=== PATIENT | male | born 1990 | race Caucasian/White ===

== ENCOUNTER 2022-11-24 14:47 | Emergency (ER) | payer BC, SELFPAY ==
--- NOTE | ~2022-11-24 | XR_ITS ---
EXAM: XR foot LT min 3V DATE: 11/24/2022 15:41 HISTORY: POSSIBLE FOREIGN BODY, 1ST DIGIT/METATARSAL AREA . COMPARISON: None available. FINDINGS: Normal mineralization. No fracture or dislocation. No lytic or blastic lesion. Joint space s are maintained. Achilles enthesopathy. No erosion or periosteal change. Linear radiopaque foreign b renae in the plantar soft tissues at the level of the mid and distal first metatarsal traversing obliqu neo from the level of the first metatarsal, distally and laterally, terminating at the level of the f irst interspace. IMPRESSION: Plantar soft tissue radiopaque foreign body, apparent wire or needle fragment, at the lev el of the first interspace and first metatarsal. Reviewed, dictated and finalized at location K. IMPRESSION: Plantar soft tissue radiopaque foreign body, apparent wire or needl e fragment, at the level of the first interspace and first metatarsal.
[2022-11-24 15:10] VITALS: BP 154/83; PULSE 66; RESP 16; TEMP 36.9; O2SAT 100
[2022-11-24 15:13] VITALS: BP 154/83; PULSE 66; RESP 16; TEMP 36.9; O2SAT 100
--- NOTE | 2022-11-24 15:30 | ED.LOWEXIN ---
HPI - Extremity Injury (Lower) General Chief Complaint: Extremity Injury, Lower Stated Complaint: Left Foot Pain Time Seen by Provider: 11/24/22 15:30 Source: patient Mode of arrival: ambulatory Limitations: no limitations History of Present Illness HPI Narrative: 32 yo M presents with c/o FB to L foot. States he was staying in hotel approx. 3 wks ago and felt something stab his foot. Looked at foot and did not see anything or any bleeding. over the past week has felt something in foot when running. States he can feel something. Has made several small cuts to the bottom of his foot trying to remove FB. pt states he thinks he is a sewing needle. All systems reviewed and negative except as noted above. Related Data Allergies Allergy/AdvReac Type Severity Reaction Status Date / Time No Known Allergies Allergy Verified 11/24/22 15:12 Review of Systems Review of Systems: CONSTITUTIONAL: Denies fever, chills, or sweats. EYES: Denies visual changes, redness, or discharge. ENT: Denies rhinorrhea, congestion, sore throat, or otalgia. CARDIOVASCULAR: Denies chest pain, palpitations, or edema. RESPIRATORY: Denies cough or dyspnea. GASTROINTESTINAL: Denies abdominal pain, nausea, vomiting, or diarrhea. GENITOURINARY: Denies dysuria or hematuria. SKIN: Denies rash or itching. Reports pain to dorsal aspect L foot concerning for FB. MUSCULOSKELETAL: Denies back pain, joint pain, or myalgia. NEUROLOGIC: Denies headache, numbness, or weakness. PSYCHIATRIC: Denies anxiety or depression. All other systems reviewed are negative, except as documented in HPI. PMFSH Comments At time of signature, agree with nursing past medical, surgical, social and family history. There is no relevant family history pertinent to the presenting complaint. Exam Narrative: GENERAL: This is a well-nourished, well-developed patient, in no apparent distress. HEAD: normocephalic, atraumatic. EYES: PERRL. Sclera clear/white. Vision is grossly intact. EARS: External ears normal NOSE: External nose normal NECK: Neck supple, non-tender without lymphadenopathy, masses or thyromegaly. CARDIOVASCULAR: Regular rate and rhythm without murmurs, gallops, or rubs. RESPIRATORY: Clear to auscultation. Breath sounds equal bilaterally. No wheezes, rales, or rhonchi. SKIN: warm, Dry, intact with no suspicious lesions or rash, good texture and turgor. harden area to dorsal aspect L foot, feels like callus. several small superficial wounds where pt tried to remove FB. no signs of infection. no FB noted on palpation. NEURO: awake, alert, and oriented to person, place and time. There were no obvious focal neurologic abnormalities. EXTREMITIES: No joint tenderness, effusion, or edema noted. Course Course Level of Care: Express Care Visit Vital Signs Vital signs: Vital Signs Temperature 36.9 C 11/24/22 15:10 Pulse Rate 66 11/24/22 15:10 Respiratory Rate 16 11/24/22 15:10 Blood Pressure 154/83 H 11/24/22 15:10 Pulse Oximetry 100 11/24/22 15:10 Oxygen Delivery Room Air 11/24/22 15:10 Temperature 36.9 C 11/24/22 15:13 Pulse Rate 66 11/24/22 15:13 Respiratory Rate 16 11/24/22 15:13 Blood Pressure 154/83 H 11/24/22 15:13 Pulse Oximetry 100 11/24/22 15:13 Oxygen Delivery Room Air 11/24/22 15:13 Reviewed MDM - Extremity Injury (Lower) MDM Narrative Medical decision making narrative: discussed x-ray results with pt. referred to podiatry for FB removal. pt would like abx as he is concerned he may get infection from him trying to remove FB himself. There are no signs of infection at this time. pt thinks FB is a sewing needle although he was in a hotel room. Explained to pt that if this is possible a needle from some type of medication he may need testing for hepatitis and HIV and he voiced understanding. Patient is aware of diagnosis, understands and agrees to treatment plan. Anticipatory guidance given. Patient agrees
== END 2022-11-24 15:58 | disposition home or self-care (01) ==
PROVIDERS: Emergency Provider Nurse Practitioner Family
DX: S90.852A Superficial foreign body, left foot, initial encounter (principal); W22.8XXA Striking against or struck by other objects, initial encounter
CPT/HCPCS: 73630; 99213; G0463

== ENCOUNTER 2023-04-01 16:12 | Emergency (ER) | payer BC, SELFPAY ==
[2023-04-01 16:16] VITALS: BP 153/88; PULSE 63; RESP 16; TEMP 36.4; O2SAT 100
--- NOTE | 2023-04-01 16:39 | ECG_ITS ---
Measurements Intervals [place] Rate: 71 P: -17 CT: 139 QRS: 8 QRSD: 105 T: 58 QT: 406 QTc: 444 Interpretive Statements SINUS RHYTHM MINIMAL Q WAVES- ANTEROLAT/HIGH LAT LEADS BORDERLINE ECG NO PREVIOUS ECG AVAILABLE FOR COMPARISON Electronically Signed On 04-01-2023 19:14:18 CERTIFIED CODER by Chapito Smith D.O.
--- NOTE | 2023-04-01 16:42 | ED.GENADULT ---
HPI - General Adult General Chief complaint: Upper Respiratory Infection Stated complaint: Shortness of Breath,Lightheaded Time Seen by Provider: 04/01/23 16:30 Source: patient and RN notes reviewed Mode of arrival: ambulatory Limitations: no limitations History of Present Illness HPI narrative: Patient presents today complaining of occasional episodes of, shortness of breath, lethargy and lightheadedness. First episode was in October 2022, then he had no episodes for several months, before beginning again approximately 6 weeks ago. States he will have 1 episode, then several days in between, then another episode randomly. Reports that episodes are typically brought on when he tries to lift weights. States he can work out by running, and this does not usually bring on an episode, but when he goes to exert himself by lift weights or other exercises, he sometimes will initiate an episode, but not always. These episodes do not typically last long. During these episodes he denies chest pain, numbness or tingling in the extremities, dizziness, vision changes. Patient states he has mentioned these episodes to his PCP in the past, but has not been worked up. States he typically has a low resting heart rate around 60. He has been feeling anxious recently, related to the recent of his brother 3 weeks ago due to ruptured aortic aneurysm. He has p.r.n. propranolol the has taken 3 times, mostly surrounding his brother's , for his anxiety. Related Data Home Medications Medication Instructions Recorded Confirmed propranolol 10 mg tablet 10 mg PO PRN PRN Anxiety 04/01/23 04/01/23 Allergies Allergy/AdvReac Type Severity Reaction Status Date / Time No Known Allergies Allergy Verified 04/01/23 16:13 Review of Systems Review of Systems: CONSTITUTIONAL: Denies body aches, fever, chills, or sweats.+ lethargy EYES: Denies visual changes, redness, or discharge. ENT: Denies rhinorrhea, congestion, sore throat, or otalgia. CARDIOVASCULAR: Denies chest pain, palpitations, or edema. RESPIRATORY: Denies cough.+ shortness of breath with exertion GASTROINTESTINAL: Denies abdominal pain, nausea, vomiting, or diarrhea. GENITOURINARY: Denies dysuria or hematuria. SKIN: Denies rash, itching, or wounds. MUSCULOSKELETAL: Denies back pain, joint pain, or myalgia. NEUROLOGIC: Denies headache, numbness, tingling, or weakness.+ lightheadedness PSYCH: Denies depression or anxiety. [facility] Past Medical History Medical History Anxiety Family History Family History Sibling Ruptured aortic aneurysm Comments At time of signature, I have reviewed and agree with nursing past medical, surgical, social and family history unless otherwise noted. Please see nursing chart for further information. There is no relevant family history pertinent to the presenting complaint Exam Narrative: GENERAL: Well-appearing, well-nourished, and in no acute distress. HEAD: Normocephalic, atraumatic. EYES: EOMI. No redness or drainage. Conjunctivae normal. ENT: Mucous membranes pink and moist. NECK: Normal AROM. Supple. No lymphadenopathy. CHEST: No respiratory distress. Clear to auscultation. HEART: Regular rate and rhythm. No murmur appreciated. Normal peripheral pulses. ABDOMEN: Soft, nontender, nondistended, normal active bowel sounds. EXTREMITIES: Normal range of motion. No edema. SKIN: Warm, dry, no rash. Capillary refill normal. Normal skin turgor. NEURO: No focal deficits. Alert and oriented x3. Gait steady. PSYCH: Normal affect. No signs of depression or anxiety. Course Course Level of Care: Express Care Visit Vital Signs Vital signs: Vital Signs Temperature 97.5 F L 04/01/23 16:16 Pulse Rate 63 04/01/23 16:16 Respiratory Rate 16 04/01/23 16:16 Blood Pressure 153/88 H 04/01/23 16:16 Pul
== END 2023-04-01 16:55 | disposition home or self-care (01) ==
PROVIDERS: Emergency Provider Nurse Practitioner; PCP Nurse Practitioner Family
DX: R42 Dizziness and giddiness (principal); F41.9 Anxiety disorder, unspecified; Z79.899 Other long term (current) drug therapy
CPT/HCPCS: 93005; 99213; G0463

== ENCOUNTER 2025-02-16 18:20 | Emergency (ER) | payer BC, SELFPAY ==
--- NOTE | 2025-02-16 18:23 | ED.URI ---
HPI - URI/Sore Throat General Chief Complaint: Upper Respiratory Infection Stated Complaint: cough Time Seen by Provider: 02/16/25 18:26 Source: patient, RN notes reviewed and old records reviewed Mode of arrival: ambulatory Limitations: no limitations History of Present Illness HPI Narrative: 34-year-old male presents to the [facility] with complaints of a cough and weight loss over the last month. Denies fevers, chest pain, significant shortness of breath or abdominal pain. Was seen by his food storeroom clerk last week and was told everything looked good. Onset (ago): month(s) (1) Related Data Home Medications ?Medication ?Instructions ?Recorded ?Confirmed ?Last Taken ?Type propranolol 10 mg tablet 10 mg PO PRN PRN Anxiety 04/01/23 02/16/25 Unknown History Allergies Allergy/AdvReac Type Severity Reaction Status Date / Time No Known Allergies Allergy Verified 02/16/25 18:21 Review of Systems Review of Systems: All systems reviewed & are unremarkable except as noted in HPI and below Constitutional: Constitutional: Reports as per HPI and Reports weight loss ENT: Reports system reviewed and no additional complaints, except as documented Cardiovascular: Cardiovascular: Reports no additional cardiovascular complaints, Denies chest pain and Denies dyspnea Respiratory: Respiratory: Reports as per HPI, Denies chest congestion, Reports cough and Denies dyspnea Musculoskeletal: Musculoskeletal: Reports no additional musculoskeletal complaints Integumentary/Breasts: Skin/Breast: Reports system reviewed and no additional complaints, except as docu PMFSH Past Medical History Medical History Anxiety Family History Family History Sibling Ruptured aortic aneurysm Comments At the time of my signature, I reviewed and agree with the nursing past medical, surgical, social, and family history. There is no relevant family history pertinent to the patient complaint. Exam Const: General: cooperative, healthy appearing, comfortable, no acute distress, well developed, alert and well nourished Nutritional Appearance: well nourished Orientation/consciousness: patient oriented x3 Limitations: no limitations HENMT: Head: normal to inspection Ears: hearing grossly normal bilaterally, external ears normal, TM's normal bilaterally, EAC's normal, mastoids normal and no periauricular adenopathy Throat: posterior oropharynx normal, uvula midline and uvular edema Eyes: General: appearance normal, both eyes and all related structures Alignment and Position: alignment normal Neck: Neck: normal visual inspection, full ROM, no lymphadenopathy and no meningeal signs Chest: Chest palpation & inspection: normal inspection of the chest Resp: Effort & Inspection: normal respiratory effort and able to speak in complete sentences Auscultation: clear to auscultation bilaterally, no crackles, no rales, no rhonchi and no wheezes Cardio: Rate: regular rate Skin: General skin exam: normal color and no rashes or lesions noted Neuro: General: patient oriented x3, gait normal, moves all extremities and no meningeal signs Cognition (Neuro): normal cognition Speech: normal speech Gait exam (Neuro): Normal gait present Extrem: General: normal to inspection, full ROM, capillary refill normal and normal gait Psych: Appearance: grossly normal and well kempt Mental Status: mental status grossly normal Speech and movement: Normal speech and movement present and Clear speech present Affect: normal affect Attitude: cooperative Course Course Level of Care: Express Care Visit Vital Signs Vital signs: Vital Signs Temperature 97.7 F 02/16/25 18:26 Pulse Rate 55 L 02/16/25 18:26 Respiratory Rate 18 02/16/25 18:26 Blood Pressure 148/91 H 02/16/25 18:26 Pulse Oximetry 100 02/16/25 18:26 Oxygen Delivery Room Air 02/16/25 18:26 Temperature 97.7 F 02/16/25 18:26 Pulse Rate 55 L 02/16/25 18:26 Respiratory Rate 18 02/16/25 18:26 Blood Pressure 148/91 H 02/16/25 18:26 Pulse Oximetry 100 02/16/25 18:26 Oxygen Delivery Room Air 02/16/25 18:26 Reviewed MDM - URI/Sore Throat MDM Narrative Medical decision making narrative: Patient sitting in exam room. Patient is nontoxic, vitals are stable. Patient presents with 1 month history of a cough and weight loss. No acute findings noted on exam. Discussed with patient that we cannot do a workup for weight loss that he should follow-up with primary care provider Patient reports labs recently, saw food storeroom clerk last week. Patient most likely with postnasal drainage. No cough noted during exam. Patient appropriate for outpatient treatment with close follow-up Discharge instructions reviewed with patient, as well as provided in writing per nursing staff. The instructions also include specific and strict return/GO TO THE ER as well as f/u information. All questions have been answered, and the patient deny any further questions with discharge and discharge plan. Some parts of this dictation were generated by voice recognition software and may contain typographical and/or grammatical inaccuracies. Differential Diagnosis Differential diagnosis: Likely upper respiratory infection, otitis media, sinusitis, viral infection, bronchitis, influenza and pharyngitis Critical Care Time Critical Care Time Critical Care Time: No Discharge Plan Discharge Clinical Impression: Cough Patient Disposition: Home Condition: Stable Instructions: Antibiotic Form, Acute Cough (ED), Postnasal Drip (DC) Additional Instructions: Please follow-up with your primary care provider within the next week for your concerns on weight loss. It is very important to treat your symptoms. Drink plenty of water, Gatorade, Pedialyte, ice pops or Jell-O. -Alternate Tylenol and Motrin per package directions for fever or pain. You can alternate every 4 hours -Antihistamine medication such as Zyrtec/Claritin during the day can help improve symptoms. -doing daily nasal irrigations can help relieve pressure your sinuses. Things like a Neti pot -Use Flonase twice a day for 5 days then daily to help reduce the inflammation and dry up your sinuses. -You can also use Mucinex. Be sure to drink plenty of water with this medication at least 8 ounces with every dose and it is important to drink 8 to 10 glasses of water per day. Water is a natural decongestant -Eat and drink things that are easy to swallow, like tea or soup, or popsicles. -Oral rinses such as: Salt water gargles and/or may use topical anesthetic (eg. Chloraseptic spray) or lozenges to relieve dryness or throat pain). -Frequent hand washing or hand account information clerk is one of the best ways to prevent spread of infection. -Using a vaporizer or humidifier at night will also help thin secretions and help with coughing up phlegm. -Follow up with primary care provider in 7-10 days if condition is not improving - For new or worsening symptoms go directly to the nearest ER Patient Language: Martiniquais Prescriptions: No Action propranolol 10 mg tablet 10 mg PO PRN PRN (Reason: Anxiety) Follow-up/Referrals: Hans,Susan White, NEURODIAGNOSTIC TECHNICIAN [Primary Care Provider, Unknown] - 1 Week Stand Alone Forms: Work/School Release IP Time of Disposition: 18:35
--- OUTSIDE RECORDS SUMMARY | 2025-02-16 18:24 | XMS_ITS | Data Portability ---
Author Organization [place] - [facility], Main Office Address [address] [place] [address] Care Team Providers Care Charge Preparation Technician Name Role Phone DIAZ FREDERIC Primary Care Provider Assessment Encounter Date Assessment Date Assessment LastModified by Organization Details LastModified Time 12/16/2024 12/16/2024 Answered all questions for pt. Pt wants to hold off on sleep study at this time. Cont f/u with Oral surgeon as per schedule. F/u with PCP in 2-3 months as directed. Not available 12/16/2024 10:17:42 Plan of Treatment Reminders Order Date Submit Date Provider Last Modified By Organization Details Last Modified Time Details Appointments None recorded. Lab magnesium, serum or plasma 2024 025 [facility], [address] [place], [address], 14:49:08 testostero ne, free + total, serum [address] [facility], [address] [place], [address], 08:45:04 vitamin D, 25-hydroxy , total, serum [address] [facility], [address] [place], [address], 08:45:04 vitamin B12 + folate, serum or blood [address] [facility], [address] [place], [address], 08:45:04 CBC w/ auto diff [address] [facility], [address] [place], [address], 08:45:05 TSH, serum or plasma [address] [facility], [address] [place], [address], 08:45:05 T4, free, serum [address] [facility], [address] [place], [address], 08:45:05 iron + TIBC + ferritin, serum [address] [facility], [address] [place], [address], 08:45:05 testostero ne, free + total, serum 2024 [facility], [address] [place], [address], 16:13:[address] referral - Please call patient to schedule an appointmen t with any in network provider. Thank you. 2024 KELVIN Tripathi MD, [facility], [facility] [address], [place], [address], 14:25:20 Procedures None recorded. Surgeries None recorded. Imaging None recorded. Medication Orders testostero ne cypionate 200 mg/mL intramuscu lar oil 2024 [id number], [address], [place], [id number], 5 09:36:46 fluticason e propionate 50 mcg/actuat ion nasal spray,susp ension [address] [facility], [address] [facility], [place], [place], [id number], 5 11:10:37 cetirizine 10 mg tablet [address] [facility]76927, [address] [facility], [place], [place], [id number], 5 09:28:28 Zithromax Z-Otto 250 mg tablet [address] [facility]56356, [address], [place], [id number], 5 09:28:20 prednisone 10 mg tablet [address] [facility]25100, [address], [place], [id number], 5 09:28:33 Patient TargetsNo targets recorded. Patient InstructionsNo instructions recorded. 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 Thank you. Referring Physician: Susan Maxwell, Family Medicine, Encounter Date: 01/29/2025 Results Created Date Observation Date Name Description Value Unit Range Abnormal Flag Note LastModifiedBy Organization Detail LastModifiedTime Result Notes None recorded. Problems Name Problem SNOMED Code Status Onset Date Resolution Date Notes Provider Name and Address Organization Details Recorded Time Pain in left foot 872232344370 107 Active 2022 Shelby Herrera NP [address] [facility], [facility] [address], [place], [address] , [facility] 3 08:09:59 Accidenta l needle stick injury 461770708243 63654 Completed 202212/25/2023 KRISTAL Lovelace [address], [address], [place], [address], [employer] [facility] 4 09:25:49 Anxiety 81904317 Completed 202212/25/2023 KRISTAL Lovelace [address], [address], [place], [address], [employer] 4 09:25:57 Headache 34778812 Active 2022 Frederic Diaz MD [address], [address], [place], [address], [employer] [facility] 3 12:03:39 Anxiety disorder 628354269 Active 2022 Frederic Diaz MD [address], [address], [place], [address], [employer] 3 12:13:46 Thrombocy topenic disorder 443341710 Active 2022 Frederic Diaz MD [address], [address], [place], [address], [employer] [facility] 3 12:29:26 Family history of Cardiovas cular disease 954124359 Active 2022 Frederic Diaz MD [address], [address], [place], [address], [employer] [facility] 3 12:30:11 of relative Active 2022 Frederic Diaz MD [address], [address], [place], [address], [employer] [facility] 3 12:30:16 Fatigue 34250185 Active 2023 KRISTAL Lovelace [address], [address], [place], [address], [employer] 5 11:22:57 Increased frequency of urination 726811348 Active 2024 KRISTAL Lovelace [address], [place], [address], [employer] [facility] [employer] [facility] 5 10:43:54 Platelet count outside reference range 810294778 Active 2024 KRISTAL Lovelace [address], [address], [place], [address], [employer] [facility] [employer] [facility] 5 10:45:06 Testoster one level below reference range 133794059 Active 2024 KRISTAL Lovelace [address], [place], [address], [employer] [facility] [employer] [facility] 5 10:46:00 Nasal congestio n 20594807 Active 2024 Frederic Diaz MD [address], [address], [place], [address], [employer] [facility] [employer] [facility] 5 10:58:28 Facial sinus finding 210295854 Active 2024 Frederic Diaz MD [address], [place], [address], [employer] [facility] [employer] [facility] 5 10:58:38 Productiv e cough 35857148 Active 2024 Frederic Diaz MD [address], [address], [place], [address], [employer] [facility] [employer] [facility] 5 11:17:40 Purulent bronchiti s 15548749 Active 2024 Frederic Diaz MD [address], [place], [address], [employer] [facility] [employer] [facility] 5 11:18:42 Seasonal allergy 252323258 Active 2024 Frederic Diaz MD [address], [address], [place], [address], [employer] [facility] [employer] [facility] 5 11:20:49 Malaise and fatigue 665583540 Active 2024 Frederic Diaz MD [address], [address], [place], [address], [employer] 09:55:36 Disorder of respirato ry system suspected 285860903 Active 2024 Frederic Diaz MD [address], [place], [address], [employer] 09:55:47 Lethargy 801653471 Active 2024 Frederic Diaz MD [address], [address], [place], [address], [employer] 10:17:06 Male hypogonad ism 35515958 Active 2024 KRISTAL Lovelace [address], [address], [place], [address], [employer] 11:20:09 Sinus bradycard ia 55823715 Active 2024 KRISTAL Lovelace [address], [address], [place], [address], [employer] 11:22:24 Calcified lymph nodes 960176518 Active 2024 KRISTAL Lovelace [address], [address], [place], [address], [employer] 08:52:49 Hypermagn esemia 64451162 Active 2024 KRISTAL Lovelace [address], [place], [address], [employer] 10:22:58 Problem Notes None recorded. Medical Equipment None Reported. Allergies No known drug allergies Medications Name Sig Start Date Stop Date Status Note LastModified by Organization Details LastModified Time prednisone 10 mg tablet Take 1 tablet every day by oral route as directed for 7 days. 11/05 completed Not Available Not Available Not Available cetirizine 10 mg tablet Take 1 tablet every day by oral route as directed for 30 days. 11/05 completed Not Available Not Available Not Available azithromyci n 250 mg tablet TAKE 2 TABLETS (500 MG) BY ORAL ROUTE ONCE DAILY FOR 1 DAY THEN 1 TABLET (250 MG) BY ORAL ROUTE ONCE DAILY FOR 4 DAYS 11/05 completed Not Available Not Available Not Available amoxicillin 500 mg tablet TAKE 1 TABLET BY MOUTH THREE TIMES DAILY 01/29 completed Not Available Not Available Not Available propranolol 10 mg tablet TAKE 1 TO 2 TABLETS BY MOUTH TWICE DAILY NEEDED FOR ANXIETY 12/24 completed Not Available Not Available Not Available benzonatate 100 mg capsule active Not Available Not Available Not Available cephalexin 500 mg capsule TAKE 1 CAPSULE BY MOUTH TWICE DAILY. 04/10 completed Not Available Not Available Not Available buspirone 10 mg tablet TAKE 1 TABLET BY MOUTH EVERY 12 HOURS NEEDED 12/24 completed Not Available Not Available Not Available testosteron e cypionate 200 mg/mL intramuscul ar oil INJECT 0.25 ML IN THE MUSCLE EVERY 4 WEEKS DIRECTED active Not Available Not Available No t Available methylpredn isolone 4 mg tablets in a dose pack FOLLOW PACKAGE DIRECTION S 12/16 completed Not Available Not Available Not Available fluticasone propionate 50 mcg/actuati on nasal spray,suspe nsion SHAKE LIQUID AND USE 2 SPRAYS IN EACH NOSTRIL EVERY DAY DIRECTED 01/29 completed Not Available Not Available Not Available Eclipse Syringe 3 mL 25 gauge x 1 USE DIRECTED active Not Available Not Available No t Available Vitals Date Recorded Heart rate Provider Name an d Address Organization Details Last Updated DateTime 10/15/2024 63 /min Kiko Ford [address] [facility], [facility] [address], [place], [address], [place] - [facility] [employer] [facility] 10/15/2024 11:42:52 Date Recorded Body height Body mass index (BMI) Body weight Body temperature Oxygen saturation Oxygen saturation in Arterial blood by Pulse oximetry Systolic And Diastolic Provider Name and Address Organization Details Last Updated DateTime 193.04 cm 24.5 kg/m2 13530.7 7 g 97.3 [degF] 97 % 97 % 140/80 mm[Hg] Soha Hernandes RN [facility] [employer] [facility] 5 11:14:28 Date Recorded Body height Body mass index (BMI) Body weight Body temperature Heart rate Respiratory rate Oxygen saturation Oxygen saturation in Arterial blood by Pulse oximetry Pain severity - 0-10 verbal numeric rating [Score] - Reported Systolic And Diastolic Provider Name and Address Organization Details Last Updated DateTime 5 193.04 cm 24.9 kg/m2 33660.5 9 g 97.1 [degF] 70 /min 20 /min 97 % 97 % 0 122/90 mm[Hg] Shelby Gallagher RN [facility] 09:30:39 Date Recorded Body height Body mass index (BMI) Body weight Body temperature Oxygen saturation Oxygen saturation in Arterial blood by Pulse oximetry Heart rate Systolic And Diastolic Provider Name and Address Organization Details Last Updated DateTime 5 193.04 cm 24.9 kg/m2 30156.2 9 g 97.4 [degF] 98 % 98 % 56 /min 124/80 mm[Hg] Soha Hernandes RN [facility] 5 09:52:32 Date Recorded Body height Body mass index (BMI) Body weight Body temperature Heart rate Respiratory rate Oxygen saturation Oxygen saturation in Arterial blood by Pulse oximetry Pain severity - 0-10 verbal numeric rating [Score] - Reported Systolic And Diastolic Provider Name and Address Organization Details Last Updated DateTime 5 193.04 cm 24.5 kg/m2 87696.8 2 g 97.3 [degF] 51 /min 20 /min 99 % 99 % 0 120/80 mm[Hg] Shelby Gallagher RN [facility] 5 11:12:55 Social History Question Answer Notes LastModified by Organizat ion Details LastModified Time Tobacco Smoking Status Never Smoker LUANNE Kulkarni, [place] [employer] [facility] 11/29/2022 08:49:55 Do You Have An Advance Directive? No Information not available 12/25/2023 What Is Your Level Of Caffeine Consumption? Occasional Soda Information not available 12/25/2023 In The 14 Days Before Symptom Onset, Have You Had Close Contact With A Laboratory-confir med COVID-19 While That Case Was Ill? No Information not available 11/29/2022 In The 14 Days Before Symptom Onset, Have You Had Close Contact With A Person Who Is Under Investigation For COVID-19 While That Person Was Ill? No Information not available 11/29/2022 What Type Of Diet Are You Following? REGULAR Information not available 11/29/2022 What Is The Highest Grade Or Level Of School You Have Completed Or The Highest Degree You Have Received? [id number] Information not available 11/29/2022 How Many Days Of Moderate To Strenuous Exercise, Like A Brisk Walk, Did You Do In The Last 7 Days? -1 Information not available 11/29/2022 Have There Been Any Changes To Your Family Or Social Situation? No Information no t available 11/29/2022 What Is The Fluoride Status Of Your Home? Fluoridated Information not available 11/29/2022 Are There Any Guns Present In Your Home? Yes Information not available 11/29/2022 Do You Use Insect Repellent Routinely? Yes Information not available 11/29/2022 Where Do You Live? [facility] Information not available 12/25/2023 Do You Have A Medical Power Of Hot Air Furnace Installer Repairer? No Information not available 12/25/2023 How Many Children Do You Have? 3 Information not available 12/25/2023 Do You Have Any Pets? Yes 2 Dogs Information not available 11/29/2022 Do You Use Protection During Sex? No Information not available 11/29/2022 What Is Your Relationship Status? Information not available 11/29/2022 Do You Use Your Seat Belt Or Car Seat Routinely? Yes Information not available 12/25/2023 Are You Sexually Active? Yes Information not available 11/29/2022 Do You Have Smoke And Carbon Monoxide Detectors In Your Home? Yes Information not available 11/29/2022 Are You Passively Exposed To Smoke? No Information no t available 11/29/2022 Are There Any Smokers In Your House? No Information not available 11/29/2022 Do You Participate In Social Media? Yes Information not available 12/25/2023 Do You Use Sunscreen Routinely? Yes Information not available 11/29/2022 Has Tobacco Cessation Counseling Been Provided? No Information not available 11/29/2022 Have You Recently Traveled Abroad? No Information not available 11/29/2022 Are You Currently In School? No Information not available 11/29/2022 Do You Have Any Dietary Restrictions? No Information not available 11/29/2022 Sex: Unknown Functional Status Question Answer Note LastModified by Organizat ion Details LastModified Time Do you use any illicit or recreational drugs? No Information not available 11/29/2022 Do you or have you ever used any other forms of tobacco or nicotine? No Information not available 11/29/2022 Are you currently employed? 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 Moderate Information not available 11/29/2022 Mental Status Question Answer Note LastModified by Organization D etails LastModified Time Do you feel stressed (tense, restless, nervous, or anxious, or unable to sleep at night)? [id number] Information not available 12/25/2023 Family History Relationship Description Onset Age of this Age Resolved Age Notes LastModified by Organization Details LastModified Time Father Essential hypertension [email or web address] Not available 09:21:35 Brother Aortic aneurysm 2022. age? [email or web address] Not available 04/02/2023 07:41:18 Medical History Condition Response OSTEOPOROSIS Immunizations Vaccine Type Date Status Note Provider Nam e and Address Organization Details Recorded Time Tdap 05/06/2013 completed Not Available [employer] 07/04/2022 17:47:19 Tdap 12/25/2023 completed Shelby Gallagher RN [facility], [place] [employer] [facility] 12/25/2023 10:27:26 Past Encounters Encounter ID Performer Location Encounter Start Date Encounter Closed Date Diagnosis/Indication Diagnosis SNOMED-CT Code Diagnosis ICD10 Code Diagnosis IMO Codes Diagnosis Note [id number] Shelby Herrera NP [address] [address] 11/29/2022 08:36:34 11/29/2022 09:23:23 Pain in left foot 7418077960 60178 M79.672 Referring to surgery for removal. Pt states he has appt with a corporate controller , but it is not in the next 2 weeks. Pt wishes to get it removed RYANN. Accidental needle stick injury 1588957150 6127689 T14.8XXA HIV screening 721282767 Z11.4 Anemia screening 8954665 07 Z13.0 Diabetes m ellitus screening 319041680 Z13.1 Thyroid di sorder screening 768283783 Z13.29 Hyperlipid emia screening 830434377 Z13.464 [id number] Frederic Diaz MD [address] [address] 04/10/2023 11:51:52 04/10/2023 12:36:56 Seen in emergency clinic 443766550 Z76.89 Urgent care Family his tory of Cardiovascular disease 253010579 Z82.49 Brother, Dad of relative 373389 008 Z63.4 Brother Anxiety disorder 8691245 06 F41.9 Thrombocyt openic disorder 255895631 D69.6 [id number] Frederic Diaz MD [address] [address] 12/25/2023 08:50:16 12/25/2023 09:37:44 Fatigue 25991319 R53.83 Family his tory of Cardiovascular disease 716584252 Z82.49 Administra tion of diphtheria, pertussis, and tetanus vaccine 871379493 Z23 [id number] Frederic Diaz MD [address] [address] 08/04/2024 10:08:47 08/04/2024 11:55:56 Increased frequency of urination 471915760 R35.0 x 2 days, keeping him up through the night Platelet c ount outside reference range 076095380 R79.89 Testostero ne level below reference range 027777107 R89.1 [facility] [id number] Frederic Diaz MD [address] [address] 10/15/2024 10:56:48 10/15/2024 11:55:07 Nasal congestion 03049544 R09.81 08775 Productive cough 3934147 5 R05.8 433173 Purulent bronchitis 2959 1002 J41.1 2688 Seasonal allergy 3419352 04 J30.2 99687 [id number] Frederic Diaz MD [address] [address] 11/05/2024 09:19:11 11/05/2024 09:51:38 Testosterone level below reference range 289951220 R89.1 Well controlled asymptomat ic [id number] Frederic Diaz MD [address] [address] 12/16/2024 09:41:32 12/16/2024 10:01:54 Malaise and fatigue 040616556 R53.81 R53.83 07412 Disorder o f respiratory system suspected 182263264 R29.818 55342318 History of root canal treatment 3793288746 Z98.811 4453826367 Lethargy 005625057 R53.8 3 00720 [id number] Frederic Diaz MD [address] [address] 01/29/2025 10:59:00 01/29/2025 13:15:02 Male hypogonadism 32982967 E29.1 90283674 Managed with testostero ne injections Sinus bradycardia 384069 05 R00.1 3919 Watch will alert him of resting heart rate of 45 Fatigue 04711411 R53.82 375268 Sluggish [id number] Frederic Diaz MD [address] [address] 02/11/2025 10:05:54 02/11/2025 14:31:46 Health Concerns Section Related Observation LastModified by Organization Detai ls LastModified Time None Recorded Concern Status LastModified by Organization Details LastModified Time None Recorded Advance Directives Directive N: Payers Insurance Date Sequence Insurance Name Policy Number Policy Carter Covered Member ID Carter Member ID Guarantor Name 02/11/2025 1 MADI (O) [id number] Tate Pretty Fulling [id number] Tate Hutchinson 01/29/2025 1 LEE (PPO) [id number] Tate Pretty Fulling [id number] Tate Hutchinson Notes Date Note Type Note Provider Name and Address Organization Details Recorded Time 10/15/2024 text/html ACV: C/o cough, congestion, yellowish sputum for last 2 months, on/off. Denies any other symptoms. Denies any known sick contact. Pt has been doing otc meds, but still not getting better. Frederic Diaz MD [address], [place], [address], [employer] 10/15/2024 11:44:14 11/05/2024 text/html Tate Hutchinson is a 34 year old male patient here today for a testosterone FU He started testosterone injections 3 months ago, he is tolerating these well and feeling good. No other concerns today KRISTAL Lovelace [address], [place], [address], [employer] 11/05/2024 09:40:08 12/16/2024 text/html ACV: Pt has some questions about root canal and possible sleep apnea. Pt says he feels very well after doing antibiotic course with his overall health. Pt is f/u with an Oral surgeon for his root canal and he got infection in that area 2nd time. So he got antibiotics and he is feeling much better now. Snoring ++, denies any pauses at night. Denies any mood problems. Frederic Diaz MD [address], [address], [place], [address], [facility] [employer] [facility] 12/16/2024 10:18:49 01/29/2025 text/html Tate Hutchinson is a 34 year old male patient here today for a testosterone FU He started testosterone injections 3 months ago, he is tolerating these well and feeling good. He has concerns with bradycardia. He notes his watch will wake him up with a heart rate of 45 in the middle of the night. He would like to see cardio He is still concerned with fatigue. Susan Maxwell, INORGANIC CHEMIST [address] [facility], [address], [place], [address], [facility] [place] [employer] [facility] 01/29/2025 13:05:36
--- OUTSIDE RECORDS SUMMARY | 2025-02-16 18:24 | XMS_ITS | Clinical Summary ---
Author Organization [facility] Address [address] [place] [address] Care Team Providers Care Private Detective Name Role Phone Unavailable Primary Care Provider Unavailabl e Immunizations Immunization Administration Dates Next Due Covid-19, Mrna, Lnp-s, Pf, 30 Mcg/0.3 Ml Dose (P fizer) 05/10/2021 Social History Tobacco Use Types Packs/Day Years Used Date Smoking Tobacco: Never Assessed Sex and Gender Information Value Date Recorded Sex Assigned at Not on file Legal Sex Male 7:03 AM BRAN [employer]ER Gender Identity Not on file Sexual Orientation Not on file Plan of Treatment Health Maintenance Due Date Last Done Comments Hepatitis C Virus (HCV) Screening 1990 Human Papillomavirus (HPV) Immunization (1 - 3-dose SCDM series) 07/17/2015 Influenza Immunization (#1) 2025 SARS-COV-2 Immunization (2024- season) 2025 05/10/2021 Respiratory Syncytial Virus (RSV) Immunization (Adult) (1 - 1-dose 75+ series) 07/17/2063 Hepatitis B Immunization Completed 999, 03/14/1998, 01/31/1998 DTaP/Tdap/Td Immunization Discontinued 2013, 12/29/2012, 10/14/2002, Additional history exists TdaP Immunization Completed 05/06/2013, 12/29/2012 Meningococcal Immunization (ACWY) Aged Out No longer eligible based on patient's age to complete this topic Pneumococcal Immunization Combined Aged Out No longer eligible based on patient's age to complete this topic Rotavirus Immunization Aged Out No lo nger eligible based on patient's age to complete this topic
[2025-02-16 18:26] VITALS: BP 148/91; PULSE 55; RESP 18; TEMP 36.5; O2SAT 100
== END 2025-02-16 18:37 | disposition home or self-care (01) ==
PROVIDERS: Emergency Provider Nurse Practitioner
DX: R05.9 Cough, unspecified (principal); F41.9 Anxiety disorder, unspecified
CPT/HCPCS: 99211; G0463